=== PATIENT | female | born 2000 | race American Indian/Alaskan Native ===

== ENCOUNTER 2021-02-01 19:15 | Emergency (ER) | payer OTHER, MEDICAID ==
[2021-02-01] MEDS ORDERED: ACETAMINOPHEN 500 MG TAB PO ONE (21:03)
[2021-02-01] MEDS ORDERED: ONDANSETRON 4 MG/2 ML INJ IV ONE (21:03)
[2021-02-01 22:03] LABS: Basophils % (Auto) 0.1 % (0.0-1.8); Eosinophils % (Auto) 0.1 % (0.0-4.3); Hematocrit 36.4 % (30.3-42.9); Hemoglobin 12.3 gm/dl (10.1-14.3); Lymphocytes # (Auto) 1.6 K/mm3 (1.2-5.4); Lymphocytes % (Auto) 9.8 % (13.4-35.0); Mean Corpuscular HGB Conc 34 % (30-34); Mean Corpuscular Volume 80 fl (79-97); Monocytes # (Auto) 1.2 K/mm3 (0.0-0.8); Monocytes % (Auto) 7.1 % (0.0-7.3); Platelet Count 319 K/mm3 (140-440); Red Blood Count 4.56 M/mm3 (3.65-5.03); Red Cell Distribution Width 17.9 % (13.2-15.2)
[2021-02-01 22:14] LABS: Alanine Aminotransferase 11 units/L (7-56); Albumin 4.4 g/dL (3.9-5); Blood Urea Nitrogen 11 mg/dL (7-17); Calcium 10.5 mg/dL (8.4-10.2); Hemolysis Index 8
[2021-02-01 22:20] LABS: BUN/Creatinine Ratio 18
[2021-02-02] MEDS ORDERED: METOCLOPRAMIDE 10 MG TAB PO ONE (00:28)
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
== END 2021-02-02 03:00 | disposition left against medical advice (07) ==
LOC: ED 19:15
DX: M62.830 Muscle spasm of back (principal); M62.838 Other muscle spasm; V49.59XA Passenger injured in collision with other motor vehicles in traffic accident, initial encounter; Y93.89 Activity, other specified; Y92.488 Other paved roadways as the place of occurrence of the external cause; Y99.8 Other external cause status
CPT/HCPCS: 36415; 80053; 84702; 84703; 85025; 99282